=== PATIENT | male | born 1935 | race Caucasian/White ===

== ENCOUNTER 2017-11-22 15:12 | Emergency (ER) | payer MEDICARE ==
[~2017-11-22] VITALS: Ht 170.2 cm; Wt 74.8 kg
--- NOTE | 2017-11-22 16:30 | NUR ---
patient seen and examine by Dr. Leiva.
[2017-11-22] MEDS ORDERED: SULFAMETH/TRIMETH 800/160 MG TABLET PO ONE (17:00)
[2017-11-22] MEDS ORDERED: predniSONE 50 MG TABLET PO ONE (17:00)
--- NOTE | 2017-11-22 17:07 | NUR ---
Dcd instructions and prescription given to patient. Pt. left room ambulatory [id number].
== END 2017-11-22 17:09 | disposition home or self-care (01) ==
LOC: ER 15:12
DX: L03.114 Cellulitis of left upper limb (principal); Z91.041 Radiographic dye allergy status
CPT/HCPCS: 99283; A4663